=== PATIENT | female | born 1960 | race African-American/Black ===

== ENCOUNTER → 2016-06-13 | Outpatient (CLI) | payer MEDICARE, OTHER ==
[2015-08-14 14:43] VITALS: BP 103/64
[~2016-06-13] MED LIST: ALPR0.257 PO; ALPR1TAB2 PO; AMLO5TAB2 PO; ASPI81TA2 PO; CHOL10003 PO; DULO60CA6 PO; ESTR1PAT68 TD; HYDR-2672 PO; HYDR12.53 PO; HYDR1TAB16; HYDR25TA9 PO; LIDO30CR TP; METH-37 PO; MULT-18 PO; NAPR500T3 PO; OXYC-323 PO; POTA20TA84 PO; RANI150T2 PO; TRIA1TAB3 PO; ZOLP10TA PO; ZOLP5TAB PO
== END | disposition home or self-care (01) ==
LOC: MAMMO 13:06
PROVIDERS: ATTEND Internal Medicine
DX: Z12.31 Encounter for screening mammogram for malignant neoplasm of breast (principal)
CPT/HCPCS: 77063; G0202; 77067